=== PATIENT | male | born 1965 | race Caucasian/White ===

== ENCOUNTER 2018-09-27 13:09 | Day surgery (SDC) | payer OTHER ==
[~2018-09-27] VITALS: Ht 188 cm; Wt 92.7 kg
[~2018-09-27 13:09] MED LIST: PROPOFOL 200 MG INJ ONE
[2018-09-27 14:44] VITALS: Ht 188 cm; Wt 92.7 kg
[2018-09-27] MEDS ORDERED: TAMS0.4C2 PO (15:00)
[2018-09-27] MEDS ORDERED: NASAL SPRAY (15:00)
[2018-09-27] MEDS ORDERED: MELA10TA7 PO (15:00)
--- NOTE | 2018-09-27 15:08 | PREAC ---
Date/Time of Note Date/Time of Note DATE: 09/27/18 TIME: 15:06 Anesthesia Eval and Record Evaluation Time Pre-Procedure Interview DATE: 09/27/18 TIME: 15:06 Age 52 Sex male NPO: 8 hrs Preoperative diagnosis HX COLON POLYPS Planned procedure COLONOSCOPY Past Medical History Past Medical History: None Surgery & Anesthesia Issues No known issue Meds Anticoagulation: No Beta Adali within 24 hr: No Reason Beta Adali not given: Pt. not on B-Adali Reported Medications Tamsulosin Hcl* (Tamsulosin Hcl*) 0.4 Mg Cap.er.24h, 0.4 MG PO DAILY, CAP 09/27/18 [Nasal [place]arrass] No Conflict Check 09/27/18 Melatonin (Melatonin) 10 Mg Tab.rapdis, 10 MG PO PRN for SLEEP 09/27/18 Meds reviewed: Yes Allergies Uncoded Allergies: SULFUR (Allergy, Unknown, BURNING, INFECTION, 09/27/18) Allergies Reviewed: Yes Labs/Studies Labs Reviewed: Reviewed by anesthesiologist test: N/A Pre-procedure Exam Airway: Adequate mouth opening, Adequate thyromental dist Mallampati: Mallampati II Teeth: Normal Lung: Normal Heart: Normal ASA Physical Status ASA physical status: 1 Emergency: None Planned Anesthetic General/MAC: MAC Planned Pain Management Parenteral pain med Pre-operative Attestations Prior to commencing anesthesia and surgery, the patient was re-evaluated, there was verification of: *The patient's identity *The results of appropriate recent lab work and preoperative vital signs *The above evaluation not changing prior to induction *Anesthetic plan, risk benefits, alternative and complications discussed with patient/family; questions answered; patient/family understands, accepts and wishes to proceed. YESSICA BEAULIEU Sep 27, 2018 15:08
[2018-09-27 15:10] VITALS: BP 137/91; PULSE 73; RESP 18
[2018-09-27] MEDS ORDERED: PROPOFOL 60 ML ONE (15:10)
[2018-09-27] MEDS ORDERED: LIDOCAINE 2% (SDV) 5 ML INJ ONE (15:11)
[2018-09-27] MEDS ORDERED: LABETALOL HCL 20MG INJ IV PRN (15:30)
[2018-09-27] MEDS ORDERED: EPHEDrine SULFATE 50 MG/5 ML SYG IV PRN (15:30)
[2018-09-27] MEDS ORDERED: METOCLOPRAMIDE 10 MG INJ IV PRN (15:30)
[2018-09-27] MEDS ORDERED: FENTAnyl 50 MCG/ML VIAL IV PRN ×2 (15:30)
[2018-09-27] MEDS ORDERED: hydrALAzine 20 MG INJ IV PRN (15:30)
[2018-09-27] MEDS ORDERED: ONDANSETRON 4 MG INJ IV PRN (15:30)
--- NOTE | 2018-09-27 15:36 | HPN ---
Date/Time of Note Date/Time of Note DATE: 09/27/18 TIME: 15:35 Interval H&P Admission Note Pt. seen H&P reviewed: No system changes NNAMDI MCMILLAN Sep 27, 2018 15:36
--- NOTE | 2018-09-27 15:40 | PAC ---
Date/Time of Note Date/Time of Note DATE: 09/27/18 TIME: 15:40 Post-Anesthesia Notes Post-Anesthesia Note Last documented vital signs Vital Signs Date Temp Pulse Resp B/P (MAP) Pulse Ox O2 O2 Flow FiO2 Time Delivery Rate 09/27/18 97.7 73 18 137/91 97 Room Air 15:40 (106) Activity: WNL Respiratory function: WNL Cardiovascular function: WNL Mental status: Baseline Pain reasonably controlled: Yes Hydration appropriate: Yes Nausea/Vomiting absent: Yes YESSICA BEAULIEU Sep 27, 2018 15:40
== END 2018-09-27 16:53 | disposition home or self-care (01) ==
LOC: GIL 13:09
PROVIDERS: ATTEND Internal Medicine Gastroenterology
DX: D12.5 Benign neoplasm of sigmoid colon (principal)
CPT/HCPCS: 45380; 88305; Z7610